=== PATIENT | male | born 1960 | race Caucasian/White ===

== ENCOUNTER 2017-11-16 21:10 | Inpatient (IN) | payer BC, SELFPAY ==
[2017-11-16 21:56] LABS: #Eosinphils 0.1 thou/uL (0.0-0.7); #Lymphocytes 1.6 thou/uL (1.20-3.40); #Monocytes 0.7 thou/uL (0.11-0.59); #Neutrophils 5.4 thou/uL (1.40-6.50); %Basophils 0.5 % (0.0-1.0); %Eosinophils 1.3 % (0.0-10.0); %Lymphocytes 20.1 % (21.0-51.0); %Monocytes 8.4 % (0.0-10.0); %Neutrophils 69.6 % (42.0-75.0); Mean Corpuscular HGB CONC 36.3 g/dL (32.0-36.0); Mean Corpuscular Hemoglobin 33.6 pg (27.0-31.0); Mean Corpuscular Volume 92.5 fl (80.0-94.0); Mean Platelet Volume 6.7 fL (7.4-10.4); Platelet Count 141 thou/uL (130-400); RBC Distribution Width 11.4 % (11.5-14.5); Red Blood Cell (RBC) Count 4.47 mill/uL (4.70-6.10); White Blood Cell (WBC) Count 7.8 thou/uL (4.8-10.8)
[2017-11-16] MEDS ORDERED: Dextrose 50% Abboject 50 ML SYRINGE SLOW IVP PRN (22:24)
[2017-11-16] MEDS ORDERED: HumaLOG 300 UNITS/3 ML VIAL SC PRN ×2 (22:24)
[2017-11-16] MEDS ORDERED: Dextrose 5% in Water 1,000 ML IV PRN (22:24)
[2017-11-16] MEDS ORDERED: Vancomycin HCl 1.25 GM in Sodium Chloride 0.9% 250 ML 250 ML IVPB SCH (22:30)
[2017-11-16] MEDS ORDERED: Piperacillin/Tazobactam 4.5 GM in Sodium Chloride 0.9% 100 ML IVPB SCH (22:30)
[2017-11-16 22:37] LABS: ALT (SGPT) 19 U/L (8-55); AST (SGOT) 14 U/L (5-34); Albumin 4.1 g/dL (3.5-5.0); Alkaline Phosphatase 78 U/L (40-150); Anion Gap 12 mmol/L (10-20); BUN (Urea Nitrogen) 17 mg/dL (8.4-25.7); Bilirubin, Total 0.5 mg/dL (0.2-1.2); Calc. Creatinine Clearance 0 mL/min (70-130); Calcium 9.3 mg/dL (7.8-10.44); Carbon Dioxide 25 mmol/L (22-29); Chloride 104 mmol/L (98-107); Estimated GFR-MDRD Greater than 90; Globulin 2.9 g/dL (2.4-3.5); Glucose 223 mg/dL (70-105); Potassium 3.5 mmol/L (3.5-5.1); Sodium 137 mmol/L (136-145)
[2017-11-16 23:17] LABS: Bilirubin Negative (Negative); Blood, Urine Negative (Negative); Clarity CLEAR (Clear); Glucose, Urine (Dipstick) 500 mg/dL (Negative); Leukocyte Negative (Negative); Nitrite Negative (Negative); Protein, Urine (Dipstick) 30 mg/dL (Neg-Trace); Specific Gravity, Urine 1.038 (1.002-1.036)
[2017-11-16 23:20] LABS: Bacteria/HPF None Seen HPF (None Seen); Hyaline Casts/LPF 0-3 HYALINE CAST LPF (0-3 Hyaline); RBC/HPF 0-3 HPF (0-3); Squamous Epithelial 0-3 HPF (0-3); WBC/HPF 0-3 HPF (0-3)
[2017-11-16 23:28] LABS: Crystals/HPF 2+ CA OXALATE HPF (Negative)
[2017-11-16] MEDS ORDERED: Bisacodyl 5 MG TAB PO PRN (23:41)
[2017-11-16] MEDS ORDERED: Senokot 8.6 MG TAB PO PRN (23:41)
[2017-11-16] MEDS ORDERED: Mag-Al 1200 mg/1200 mg/30 ML UDCUP PO PRN (23:41)
[2017-11-16] MEDS ORDERED: Calcium Carbonate 500 MG ChewTAB PO PRN (23:41)
[2017-11-16] MEDS ORDERED: Ondansetron HCl/PF 4 MG/2 ML Vial IVP PRN (23:41)
[2017-11-16] MEDS ORDERED: Acetaminophen 325 MG TAB PO PRN (23:41)
[2017-11-16] MEDS ORDERED: cloNIDine 0.1 MG TAB PO PRN (23:44)
[2017-11-16] MEDS ORDERED: Diabetic Tussin 200 MG/10 ML UDCUP PO PRN (23:44)
[2017-11-16] MEDS ORDERED: Loratadine 10 MG TAB PO PRN (23:44)
[2017-11-16] MEDS ORDERED: Lorazepam 1 MG TAB PO PRN (23:44)
[2017-11-16] MEDS ORDERED: Benzonatate 100 MG CAP PO PRN (23:44)
[2017-11-16] MEDS ORDERED: Nitroglycerin 0.4 MG TAB (25 Tab Bottle) SL PRN (23:44)
[2017-11-16] MEDS ORDERED: hydrALAZINE 20 MG/ML VIAL SLOW IVP PRN (23:44)
[2017-11-16] MEDS ORDERED: traMADol HCl 50 MG TAB PO PRN (23:44)
[2017-11-17] MEDS: Sodium Chloride 0.9% 1,000 ML IV SCH ×2 (00:30→16:21)
[2017-11-17 02:07] VITALS: BMI 27.5
--- NOTE | 2017-11-17 02:11 | HP ---
DATE OF ADMISSION: 11/16/2017 PRIMARY CARE PHYSICIAN: Dr. James Barry. CHIEF COMPLAINT: Repeated nose abscess and upper lip abscess with failed outpatient oral antibiotics . HISTORY OF PRESENT ILLNESS: Mr. Guevara is a very pleasant 56-year-old male with past [facility] history of diabetes, dyslipidemia, hypertension, who presented to the emergency room with above-m entioned complaint. History is mainly obtained by the patient himself and electronic medical records have been reviewed. Case has been discussed with admitting ER physician, Dr. Mancuso. According to Mr. Guevara, he has been fighting on and off skin infection for about 3 months now. It initially started in one of the fingers of the left hand and then under the nail bed of the middle fi nger. Then, he had one small abscess/boil in the right finger. He had the left nail bed infection I &D'd by his primary care physician. These healed, but later he developed similar skin infection arou nd the left areola, around the nipple. This also needed to be lanced open by PCP. Lately, he has be en fighting infection inside his nostrils. It started with infection and first left nostril and then right nostril became involved spontaneously. He has significant amount of pain. He has also notice d similar type of sores inside his mouth. Latest, his infection and a small boil and ulcer on his up per lip. During these various episodes of skin and soft tissue infection: he has been treated with v arious antibiotics. He has had Bactrim, clindamycin, and most recently doxycycline prescribed yester day. He is a diabetic and is very strict with his diet. His blood sugar ranged anywhere from 150 to 200 and he is compliant with his medications. He reports that he has been a diabetic for multiple y ears, but never had any skin infections like this. He also complains of significant amount of discom fort in the nasal area now, which has turned red. Upon presentation to the emergency room, he was hemodynamically stable. His physical examination for the emergency room physician revealed an abscess in the lower nasal cavity, the right side at the ba se of the nasal septum and the base was also hard, red, and inflamed. Unroofing was done by the ER angela escamilla, which showed a hole on the cartilage showing purulent drainage. There is concerns for cart ilage involvement along with a cellulitis and nasal abscesses at this time. He has been empirically started on IV antibiotics, namely vancomycin: clindamycin and Zosyn and is now being admitted for fur ther evaluation and care. PAST MEDICAL HISTORY: 1. Diabetes mellitus. 2. Hypertension. 3. Dyslipidemia. 4. Osteoarthritis. PAST SURGICAL HISTORY: 1. Incision and drainage of multiple skin abscesses as above. 2. L5-S1 spondylolisthesis with left greater than right lower extremity radiculopathy. 3. L5-S1 laminectomy and facetectomy bilaterally. 4. Nerve surgery on both arms. SOCIAL HISTORY: He chews tobacco. No history of drug or alcohol abuse. PSYCHIATRIC: No anxiety, no depression. FAMILY HISTORY: Diabetes run in his family, otherwise no history of premature coronary artery diseas e or stroke. ALLERGIES: MORPHINE, SULFONAMIDES. CURRENT HOME MEDICATIONS: Metformin 1000 mg p.o. b.i.d., simvastatin 80 mg daily, losartan/hydrochlo rothiazide 50/12.5 mg daily, atenolol 50 mg daily, omeprazole 20 mg daily. REVIEW OF SYSTEMS: The following complete review of systems was negative, except for those mentioned in the history and physical: Constitutional: Weight loss or gain, ability to conduct usual activit ies. Skin: Rash, itching. Eyes: Double vision, pain. ENT/Mouth: Nose bleeding, neck stiffness, pain, tenderness. Cardiovascular: Palpitations, dyspnea on exertion, orthopnea. Respiratory: Shor tness of breath, wheezing, cough, hemoptysis, fever, or night sweats. Gastrointestinal: Poor appeti te, abdominal pain, heartburn, nausea, vomiting, constipation, or diarrhea. Genitourinary: Urgency, frequency, dysuria, nocturia. Musculoskeletal: Pain, swelling. Neurologic/Psychiatric: Anxiety, depression. Allergy/Immunologic: Skin rash, bleeding tendency. LABORATORY DATA: His CBC shows normal WBCs of 7.8 with normal neutrophil percentage. He has somewha t macrocytosis without any evidence of anemia, blood sugar 223, otherwise serum chemistries unremarka ble. Urinalysis showed proteinuria and glucosuria. PHYSICAL EXAMINATION: VITAL SIGNS: Upon presentation to the ER, blood pressure 155/85, pulse of 88, respirations 18, satur ating 95% on room air, temperature 97.9. GENERAL: No acute distress, awake, alert, oriented x3. HEENT: Head is normocephalic, atraumatic. Pupils equal, reactive to light and accommodation. Extra ocular movements intact. His tip of the nose is significantly erythematous, swollen, and warm. A sm all-eroded shallow ulcer noticed on the philtrum of the upper lip. No oral ulcers noticed. No denta l abscess noticed. No caries. NECK: Supple without any lymphadenopathy, JVD, or bruit. CHEST: Clear to auscultation without any wheezing, rales, or rhonchi. Rate and rhythm is regular wi thout any murmur, rubs, or gallops. ABDOMEN: Soft, nontender, nondistended with positive bowel sounds. EXTREMITIES: Free of any cyanosis, clubbing, or edema. No ulcers noticed on the legs or feet. NEUROLOGIC: Nonfocal. PSYCHIATRIC: Normal affect. IMPRESSION AND PLAN: 1. Multiple nasal abscesses and skin wounds. At this time, it seems like the patient has self-infec caro himself in the nose at the time when he had his infection on his fingers. Possibility of bactere donnell can also not be ruled out. There is concerns for cartilaginous involvement of the nose at this t jez. We will continue him on broad-spectrum IV antibiotics and consult ID in the morning. The patie nt reports he was supposed to go to see ID as an outpatient anyways. We will also obtain an MRI of t he bones of the face and consult ENT for further recommendations regarding the concerns for cartilage involvement. Blood cultures and cultures from the wound have been obtained in the ER and we will fo llow the results. Otherwise, he is hemodynamically stable. He will be kept n.p.o. after midnight fo r ENT evaluation and started on gentle IV fluids. 2. Diabetes mellitus. We will start him on insulin-sliding scale with frequent Accu-Cheks for now. 3. History of hypertension. Resume home medications once the dosages are confirmed. 4. History of dyslipidemia. Resume atorvastatin at this time. 5. Add deep venous thrombosis and gastrointestinal prophylaxis. 6. Code status: FULL CODE discussed with the patient. DISPOSITION: The patient is being admitted at this time for nasal abscess, failing outpatient therap y, and rule out osteomyelitis. Further management will depend upon his clinical course and recommend ations from the ID and ENT teams. Estimated length of stay at this time is at least 2-3 midnights.
[2017-11-17 04:33] LABS: #Eosinphils 0.2 thou/uL (0.0-0.7); #Lymphocytes 2.1 thou/uL (1.20-3.40); #Monocytes 0.8 thou/uL (0.11-0.59); %Basophils 0.3 % (0.0-1.0); %Eosinophils 2.3 % (0.0-10.0); %Lymphocytes 29.9 % (21.0-51.0); %Monocytes 11.5 % (0.0-10.0); Hemoglobin 13.6 g/dL (14.0-18.0); Mean Corpuscular HGB CONC 34.9 g/dL (32.0-36.0); Mean Corpuscular Hemoglobin 32.4 pg (27.0-31.0); Mean Platelet Volume 6.6 fL (7.4-10.4); Platelet Count 132 thou/uL (130-400); RBC Distribution Width 11.3 % (11.5-14.5); White Blood Cell (WBC) Count 7.2 thou/uL (4.8-10.8)
[2017-11-17 04:46] LABS: Anion Gap 10 mmol/L (10-20); BUN (Urea Nitrogen) 15 mg/dL (8.4-25.7); Calc. Creatinine Clearance 117 mL/min (70-130); Calcium 8.7 mg/dL (7.8-10.44); Carbon Dioxide 29 mmol/L (22-29); Chloride 104 mmol/L (98-107); Estimated GFR-MDRD Greater than 90; Glucose 162 mg/dL (70-105); Potassium 3.5 mmol/L (3.5-5.1); Sodium 139 mmol/L (136-145)
[2017-11-17] MEDS ORDERED: Lorazepam 2 MG/ML VIAL SLOW IVP SCH (08:45)
[2017-11-17] MEDS ORDERED: Vancomycin HCl 1 GM in Premix Bag 1 BAG IVPB SCH (09:00)
[2017-11-17] MEDS ORDERED: VANCOMYCIN IVPB PRN (09:53)
[2017-11-17] MEDS ORDERED: Fentanyl 250 MCG/5 ML VIAL ONE (10:54)
--- NOTE | 2017-11-17 11:01 | CT ---
FACIAL BONES CT WITH CONTRAST: Date: 11/17/17 HISTORY: Nasal and upper lip abscess. Evaluate for destruction of cartilage and bone. Cellulitis. COMPARISON: None. TECHNIQUE: Postcontrast face CT is performed in the axial plane. Coronal reformatted images are submitted for in terpretation. FINDINGS: Visualized brain parenchyma is unremarkable. Bilateral ocular lenses are appropriately located. Both globes are intact. Retrobulbar fat is preserved. Symmetric attenuation of the optic nerves and ocular rectus muscles. Adequate aeration of the sinuses and mastoid air cells. Visualized aerodigestive tract is patent. Midline fatty raphe of the tongue is preserved. Epiglottis has a normal caliber. Pre-epiglottic fat is preserved. Visualized upper cervical spine is unremarkable. There is soft tissue swelling and edema involving the upper and lower lip soft tissues. Along the mid line of the upper lip soft tissues, there is hypoattenuation with minimal peripheral enhancement. Thi s abnormal area is just inferior to the nose and measures 1.1 cm anteroposterior x 0.4 cm mediolatera l x 0.5 cm craniocaudal. Symmetric attenuation of the visualized parotid and submandibular glands. IMPRESSION: 1. Cellulitis involving the soft tissues along the upper lip. In the midline aspect of the upper lip , just inferior to the nose, is a small abscess as defined above. 2. Preservation of the nasal cartilage. POS: [facility]
[2017-11-17] MEDS: Enoxaparin Sodium 40 MG/0.4 ML SYRINGE SC SCH (11:04)
[2017-11-17] MEDS: Famotidine 20 MG TAB PO SCH ×2 (11:04→21:31)
[2017-11-17] MEDS ORDERED: Midazolam HCl 2 mg/2 ml Vial ONE (11:38)
[2017-11-17] MEDS ORDERED: Lidocaine 1% w/Epinephrine 1:200K 30 ML VIAL ONE (11:56)
[2017-11-17] MEDS ORDERED: Oxymetazoline HCl 0.05% ( 15 ML ) ONE (11:56)
[2017-11-17] MEDS: Piperacillin/Tazobactam 3.375 GM in Sodium Chloride 0.9% 100 ML IVPB SCH ×2 (12:11→18:16)
[2017-11-17] MEDS ORDERED: ISOVUE-370 76%-LOCM 1 ML ONE (13:40)
--- NOTE | 2017-11-17 13:43 | PDOC.PN ---
- Subjective Encounter Start Date: 11/17/17 Encounter Start Time: 11:00 Subjective: no trouble swallowing or breathing - Objective MAR Reviewed: Yes Vital Signs & Weight: Vital Signs (12 hours) Temp Pulse Resp BP Pulse Ox 11/17/17 11:08 94 L 11/17/17 10:25 12 11/17/17 08:45 97.7 F 62 10 L 117/78 94 L 11/17/17 03:59 97.6 F 66 20 119/74 96 Weight Weight 186 lb 4.65 oz Result Diagrams: 11/17/17 04:13 11/17/17 04:13 Additional Labs: Accuchecks 11/17/17 05:37 POC Glucose 118 H Phys Exam - Physical Examination HEENT: PERRLA, moist MMs upper lip philtrum area has a abscess Neck: no JVD, supple Respiratory: no wheezing, no rales Cardiovascular: RRR, no significant murmur Gastrointestinal: soft, non-tender, positive bowel sounds Musculoskeletal: no edema, pulses present Neurological: non-focal, moves all 4 limbs Psychiatric: normal affect, A&O x 3 Dx/Plan (1) Facial cellulitis Code(s): L03.211 - CELLULITIS OF FACE Status: Acute Comment: has abscess of upper lip (2) DM type 2 (diabetes mellitus, type 2) Status: Chronic Qualifiers: Diabetes mellitus complication status: with unspecified complications Diabetes mellitus buttermaker continuous churn insulin use: without fpc use Qualified Code( s): E11.8 - Type 2 diabetes mellitus with unspecified complications (3) HTN (hypertension) Code(s): I10 - ESSENTIAL (PRIMARY) HYPERTENSION Status: Chronic Qualifiers: Hypertension type: essential hypertension Qualified Code(s): I10 - Essential (primary) hypertension (4) Dyslipidemia Code(s): E78.5 - HYPERLIPIDEMIA, UNSPECIFIED Status: Chronic - Plan on vanc and zosyn -: for I&D today by -: hemostable -: d/w and pt, CT face results reviewed -: continue home meds for dm, htn, dyslip * . Review of Systems - Medications/Allergies Allergies/Adverse Reactions: Allergies Allergy/AdvReac Type Severity Reaction Status Date / Time No Known Allergies Allergy Verified 06/13/14 22:22 Medications: Current Medications Acetaminophen (Tylenol) 650 mg PO Q4H PRN PRN Reason: Headache/Fever or Pain Hydrocodone Bitart/Acetaminophen ([place] 5/325) 1 tab PO Q4H PRN PRN Reason: Moderate Pain (4-6) Al Hydroxide/Mg Hydroxide (Maalox) 30 ml PO Q6H PRN PRN Reason: Heartburn or Indigestion Benzonatate (Tessalon) 100 mg PO Q4H PRN PRN Reason: Cough Bisacodyl (Dulcolax) 10 mg PO DAILYPRN PRN PRN Reason: Constipation Calcium Carbonate (Tums) 1,000 mg PO Q4H PRN PRN Reason: Heartburn or Indigestion Clonidine (Catapres) 0.1 mg PO Q4H PRN PRN Reason: Systolic BP > 160 Dextrose/Water (Dextrose 50%) 25 gm SLOW IVP PRN PRN PRN Reason: Hypoglycemia Enoxaparin Sodium (Lovenox) 40 mg SC 0900 [facility] Last Admin: 11/17/17 11:04 Dose: Not Given Famotidine (Pepcid) 20 mg PO BID [facility] Last Admin: 11/17/17 11:04 Dose: Not Given Glucagon (Glucagon) 1 mg IM PRN PRN PRN Reason: Hypoglycemia Guaifenesin (Robitussin Sf) 200 mg PO Q4H PRN PRN Reason: Cough Hydralazine HCl (Apresoline) 10 mg SLOW IVP Q4H PRN PRN Reason: Systolic BP > 170 Dextrose/Water (D5w) 1,000 mls @ 0 mls/hr IV .Q0M PRN; As Directed PRN Reason: Hypoglycemia Sodium Chloride (Normal Saline 0.9%) 1,000 mls @ 75 mls/hr IV .[id number] [facility] Last Admin: 11/17/17 00:30 Dose: 1,000 mls Piperacillin Sod/Tazobactam (Sod 3.375 gm/ Sodium Chloride) 100 mls @ 200 mls/ hr IVPB Q6HR [facility] Last Admin: 11/17/17 12:11 Dose: Not Given Vancomycin HCl 1.25 gm/ Sodium (Chloride) 250 mls @ 166.667 mls/hr IVPB 0900, 2100 [facility] Insulin Human Lispro (Humalog) 0 units SC .MODERATE SLIDING SC PRN PRN Reason: Moderate Correctional Scale Insulin Human Lispro (Humalog) 0 units SC .BEDTIME SLIDING SC PRN PRN Reason: Bedtime Correctional Scale Loratadine (Claritin) 10 mg PO DAILYPRN PRN PRN Reason: Sinus Symptoms Lorazepam (Ativan) 1 mg PO Q4H PRN PRN Reason: Anxiety/Agitation Miscellaneous Medication (Pharmacy To Dose) 1 each IVPB PRN PRN PRN Reason: Pharmacy to dose Nitroglycerin (Nitrostat) 0.4 mg SL Q5MIN PRN PRN Reason: Chest Pain Ondansetron HCl (Zofran) 4 mg IVP Q6H PRN PRN Reason: Nausea/Vomiting Pneumococcal Polyvalent Vaccine (Pneumovax 23) 0.5 ml IM .ONCE ONE Stop: 11/18/17 09:01 Senna (Senokot) 2 tab PO HSPRN PRN PRN Reason: Constipation Sodium Chloride (Flush - Normal Saline) 10 ml IVF Q12HR [facility] Last Admin: 11/17/17 11:04 Dose: Not Given Sodium Chloride (Flush - Normal Saline) 10 ml IVF PRN PRN PRN Reason: Saline Flush Tramadol HCl (Ultram) 50 mg PO Q4H PRN PRN Reason: Moderate Pain (4-6)
[2017-11-17] MEDS ORDERED: Lidocaine 1% PF 5 ML VIAL ONE (14:32)
[2017-11-17] MEDS ORDERED: Propofol 200 MG/20 ML VIAL ONE (14:32)
[2017-11-17] MEDS ORDERED: Ketorolac Tromethamine 30 MG/ML VIAL ONE (14:32)
[2017-11-17] MEDS ORDERED: Ondansetron HCl/PF 4 MG/2 ML Vial ONE (14:32)
[2017-11-17] MEDS ORDERED: Dexamethasone 20 MG/5 ML VIAL ONE (14:32)
[2017-11-17] MEDS: HYDROcodone/Acetaminophen 5/325 mg Tablet PO PRN ×2 (15:05→21:31)
--- NOTE | 2017-11-17 19:40 | OP ---
PREOPERATIVE DIAGNOSIS: Nasal labial abscess. POSTOPERATIVE DIAGNOSIS: Nasal labial abscess. PROCEDURES PERFORMED: 1. Diagnostic nasal endoscopy. 2. Incision and drainage of a nasal labial abscess. PROCEDURE IN DETAIL: After consent was obtained, the patient was positioned for surgery after transf erred to the operating room in supine position. LMA anesthesia was obtained. The patient was positi oned, prepped and draped for surgery. The area underneath the lip was infiltrated with 1% lidocaine 1:100,000 epinephrine. We then examined the patient carefully with the diagnostic nasal endoscopy. There was no obvious intranasal abscess and this all seemed to be located primarily at the level of t he upper lip. Intraorally, we were able to identify the abscess at the gingival labial sulcus. Thre e small incisions were made and purulence was evacuated. We then placed a rubber band drain within t he abscess cavity and extended out to the point of initial infection at the nasal valve. This was beltran ture secured and cultures were obtained. The patient was awakened and taken to recovery in stable co ndition prior to discharge home.
[2017-11-17] MEDS: Vancomycin HCl 1.25 GM in Sodium Chloride 0.9% 250 ML 250 ML IVPB SCH (21:30)
--- NOTE | 2017-11-17 22:38 | CON ---
DATE OF CONSULTATION: 11/17/2017 REASON FOR CONSULTATION: Nasal septal abscess. HISTORY OF PRESENT ILLNESS: A 56-year-old with history of type 2 diabetes, who has had history of recurrent skin abscesses mostly in appendicular skin surfaces and then now presents with a nasal septal abscess, which was treated in the outpatient setting by his primary physician with limited I&D and clindamycin. Dr. Dean did a surgical debridement in the hospital. I have not had the opportunity of reviewing his operative note. The patient is feeling better since that procedure. No headaches, visual symptoms. Moderate pain in the nasal septal area and nostrils. No chest pain. No dyspnea. No cough or sputum production. No abdominal pain. Voiding without difficulty. No diarrhea or genitourinary symptoms. No joint symptoms or neurological symptoms. PAST MEDICAL HISTORY: Type 2 diabetes, hypertension, dyslipidemia, osteoarthritis. PAST SURGICAL HISTORY: I&D, prior skin abscesses elsewhere, lumbar surgery without any instrumentation. SOCIAL HISTORY: Works in the [employer]. . Never a smoker. Chews tobacco. Lives in the area. FAMILY HISTORY: Diabetes. ALLERGIES: MORPHINE and SULFA DRUGS. MEDICATIONS: At this time, receiving Tylenol, [place], Maalox, Tessalon, Dulcolax , Tums, Catapres, IV fluids, Lovenox, Pepcid, glucagon, Robitussin, insulin, and Zosyn as well as vancomycin. PHYSICAL EXAMINATION: VITAL SIGNS: Essentially normal. Blood pressure 117/78, pulse 62, respirations 12 with O2 sat 94%. GENERAL: Appears in no distress. SKIN: The patient has packing in his nostril area. HEENT: Ocular movements conjugate. NECK: No jugular vein distention. No thyromegaly. LUNGS: Clear to auscultation and percussion. HEART: Normal. ABDOMEN: Soft. Not distended or tender. No ascites. No bladder distention. No organomegaly. EXTREMITIES: No joint inflammatory activity. Pulses 1+ in dorsalis pedis. NEUROLOGIC: Plantar responses are flexor. Moves extremities equally. Cognitive function appears to be intact. LABORATORY DATA: White cell count 7.8 and 7.2, hemoglobin 13.6, MCV 93, platelets 132 with normal differential. Chemistry with essentially normal findings except for hyperglycemia. Urinalysis with glycosuria and some protein , but otherwise normal. Microbiology with preliminary findings from the nasal abscess with a rare gram-positive cocci in pairs. ASSESSMENT AND PLAN: Type 2 diabetes with recurrent skin abscesses, now with a nasal abscess, status post drainage. Apparently, there was some cartilage involvement. The patient had facial bone CT, which shows cellulitis and small abscess with preservation of the nasal cartilage. The most likely scenario is Staphylococcal abscesses due to colonization by a more virulent strain. MRSA is a possibility. Continue vancomycin and transition to the definitive regimen once we have the final identification susceptibilities. We will review the records from the surgical debridement and then hopefully discharge on oral antimicrobial therapy. If there is evidence of more aggressive involvement of cartilage, then we will have to treat with intravenous regimen for a few weeks. After completion of acute phase of treatment should prescribe oral decolonization regimen with Rifampin/Doxycycline. MTDD
[2017-11-18] MEDS: Piperacillin/Tazobactam 3.375 GM in Sodium Chloride 0.9% 100 ML IVPB SCH ×5 (00:17→23:28)
[2017-11-18] MEDS: Sodium Chloride 0.9% 1,000 ML IV SCH ×2 (03:29→21:00)
[2017-11-18 08:24] LABS: Vancomycin, Trough 8.8 ug/mL
[2017-11-18] MEDS: Famotidine 20 MG TAB PO SCH ×2 (08:27→21:02)
[2017-11-18] MEDS: Enoxaparin Sodium 40 MG/0.4 ML SYRINGE SC SCH (08:27)
[2017-11-18] MEDS: Vancomycin HCl 1.25 GM in Sodium Chloride 0.9% 250 ML 250 ML IVPB SCH (08:27)
--- NOTE | 2017-11-18 11:56 | PDOC.PN ---
- Subjective Encounter Start Date: 11/18/17 Encounter Start Time: 10:00 Subjective: feels better, slept well -: his face is swollen a bit -: no trouble breathing or eating - Objective MAR Reviewed: Yes Vital Signs & Weight: Vital Signs (12 hours) Temp Pulse Resp BP Pulse Ox 11/18/17 11:25 97.7 F 80 16 124/78 96 11/18/17 08:00 98.3 F 65 16 95 11/18/17 07:59 98.3 F 65 16 153/80 H 95 11/18/17 00:00 72 19 133/81 96 Weight Weight 186 lb 4.65 oz I&O: 11/17/17 11/18/17 11/19/17 06:59 06:59 07:59 Intake Total 2285 2120 Balance 2285 2120 Result Diagrams: 11/17/17 04:13 11/17/17 04:13 Additional Labs: Accuchecks 11/18/17 11/17/17 05:41 20:51 POC Glucose 110 213 H Phys Exam - Physical Examination HEENT: PERRLA, moist MMs Neck: no JVD, supple Respiratory: no wheezing, no rales Cardiovascular: RRR, no significant murmur Gastrointestinal: soft, non-tender, positive bowel sounds Musculoskeletal: no edema, pulses present Neurological: non-focal, moves all 4 limbs Psychiatric: normal affect, A&O x 3 Dx/Plan (1) Facial cellulitis Code(s): L03.211 - CELLULITIS OF FACE Status: Acute Comment: abscess of upper lip, s/p I&D (2) DM type 2 (diabetes mellitus, type 2) Status: Chronic Qualifiers: Diabetes mellitus complication status: with unspecified complications Diabetes mellitus moth exterminator insulin use: without fci use Qualified Code( s): E11.8 - Type 2 diabetes mellitus with unspecified complications (3) HTN (hypertension) Code(s): I10 - ESSENTIAL (PRIMARY) HYPERTENSION Status: Chronic Qualifiers: Hypertension type: essential hypertension Qualified Code(s): I10 - Essential (primary) hypertension (4) Dyslipidemia Code(s): E78.5 - HYPERLIPIDEMIA, UNSPECIFIED Status: Chronic - Plan is on vanc and zosyn -: await final cultures -: has some more swelling of his face this am -: likely dc plan in am when full cultures are available -: to continue home meds for htn, dm and dyslip * . Review of Systems - Medications/Allergies Allergies/Adverse Reactions: Allergies Allergy/AdvReac Type Severity Reaction Status Date / Time No Known Allergies Allergy Verified 06/13/14 22:22 Medications: Current Medications Acetaminophen (Tylenol) 650 mg PO Q4H PRN PRN Reason: Headache/Fever or Pain Hydrocodone Bitart/Acetaminophen ([place] 5/325) 1 tab PO Q4H PRN PRN Reason: Moderate Pain (4-6) Last Admin: 11/17/17 21:31 Dose: 1 tab Al Hydroxide/Mg Hydroxide (Maalox) 30 ml PO Q6H PRN PRN Reason: Heartburn or Indigestion Benzonatate (Tessalon) 100 mg PO Q4H PRN PRN Reason: Cough Bisacodyl (Dulcolax) 10 mg PO DAILYPRN PRN PRN Reason: Constipation Calcium Carbonate (Tums) 1,000 mg PO Q4H PRN PRN Reason: Heartburn or Indigestion Clonidine (Catapres) 0.1 mg PO Q4H PRN PRN Reason: Systolic BP > 160 Last Admin: 11/17/17 15:07 Dose: 0.1 mg Dextrose/Water (Dextrose 50%) 25 gm SLOW IVP PRN PRN PRN Reason: Hypoglycemia Enoxaparin Sodium (Lovenox) 40 mg SC 0900 [facility] Last Admin: 11/18/17 08:27 Dose: 40 mg Famotidine (Pepcid) 20 mg PO BID [facility] Last Admin: 11/18/17 08:27 Dose: 20 mg Glucagon (Glucagon) 1 mg IM PRN PRN PRN Reason: Hypoglycemia Guaifenesin (Robitussin Sf) 200 mg PO Q4H PRN PRN Reason: Cough Hydralazine HCl (Apresoline) 10 mg SLOW IVP Q4H PRN PRN Reason: Systolic BP > 170 Dextrose/Water (D5w) 1,000 mls @ 0 mls/hr IV .Q0M PRN; As Directed PRN Reason: Hypoglycemia Sodium Chloride (Normal Saline 0.9%) 1,000 mls @ 75 mls/hr IV .[id number] [facility] Last Admin: 11/18/17 03:29 Dose: Not Given Piperacillin Sod/Tazobactam (Sod 3.375 gm/ Sodium Chloride) 100 mls @ 200 mls/ hr IVPB Q6HR [facility] Last Admin: 11/18/17 06:26 Dose: 100 mls Vancomycin HCl 1.75 gm/ Sodium (Chloride) 500 mls @ 250 mls/hr IVPB 0900,2100 [facility] Insulin Human Lispro (Humalog) 0 units SC .MODERATE SLIDING SC PRN PRN Reason: Moderate Correctional Scale Insulin Human Lispro (Humalog) 0 units SC .BEDTIME SLIDING SC PRN PRN Reason: Bedtime Correctional Scale Loratadine (Claritin) 10 mg PO DAILYPRN PRN PRN Reason: Sinus Symptoms Lorazepam (Ativan) 1 mg PO Q4H PRN PRN Reason: Anxiety/Agitation Miscellaneous Medication (Pharmacy To Dose) 1 each IVPB PRN PRN PRN Reason: Pharmacy to dose Nitroglycerin (Nitrostat) 0.4 mg SL Q5MIN PRN PRN Reason: Chest Pain Ondansetron HCl (Zofran) 4 mg IVP Q6H PRN PRN Reason: Nausea/Vomiting Senna (Senokot) 2 tab PO HSPRN PRN PRN Reason: Constipation Sodium Chloride (Flush - Normal Saline) 10 ml IVF Q12HR [facility] Last Admin: 11/17/17 22:44 Dose: Not Given Sodium Chloride (Flush - Normal Saline) 10 ml IVF PRN PRN PRN Reason: Saline Flush Tramadol HCl (Ultram) 50 mg PO Q4H PRN PRN Reason: Moderate Pain (4-6)
[2017-11-18] MEDS: metFORMIN 500 MG TAB PO SCH (17:19)
[2017-11-18] MEDS ORDERED: Simvastatin 40 MG TAB PO SCH (21:00)
[2017-11-18] MEDS: Vancomycin HCl 1.75 GM in Sodium Chloride 0.9% 500 ML IVPB SCH (21:03)
[2017-11-19] MEDS: Sodium Chloride 0.9% 1,000 ML IV SCH (04:00)
[2017-11-19] MEDS: Piperacillin/Tazobactam 3.375 GM in Sodium Chloride 0.9% 100 ML IVPB SCH ×2 (05:53→12:11)
[2017-11-19] MEDS: metFORMIN 500 MG TAB PO SCH (08:22)
[2017-11-19] MEDS: Famotidine 20 MG TAB PO SCH (08:22)
[2017-11-19] MEDS: Enoxaparin Sodium 40 MG/0.4 ML SYRINGE SC SCH (08:23)
[2017-11-19] MEDS: Vancomycin HCl 1.75 GM in Sodium Chloride 0.9% 500 ML IVPB SCH (08:24)
[2017-11-19 08:25] VITALS: BP 141/73
[2017-11-19] MEDS ORDERED: Atenolol 50 MG TAB PO SCH (09:00)
[2017-11-19 09:48] VITALS: TEMP 98
--- NOTE | 2017-11-19 12:35 | PDOC.PN ---
- Subjective Encounter Start Date: 11/19/17 Encounter Start Time: 08:30 Subjective: feels better, no trouble eating or swallowing - Objective MAR Reviewed: Yes Vital Signs & Weight: Vital Signs (12 hours) Temp Pulse Resp BP BP Pulse Ox 11/19/17 08:22 63 141/73 H 11/19/17 08:00 98.0 F 63 18 95 11/19/17 05:32 93 L 11/19/17 04:00 97.6 F 76 16 132/81 95 11/18/17 23:51 97.5 F L 58 L 16 147/83 H 96 Weight Weight 186 lb 4.65 oz I&O: 11/18/17 11/19/17 11/20/17 05:59 06:59 06:59 Intake Total Balance Result Diagrams: 11/17/17 04:13 11/17/17 04:13 Additional Labs: Accuchecks 11/19/17 11/19/17 11/18/17 11:23 05:48 20:37 POC Glucose 206 H 112 H 168 H 11/18/17 11/18/17 15:50 11:28 POC Glucose 205 H 280 H Phys Exam - Physical Examination HEENT: PERRLA, moist MMs Neck: no JVD, supple Respiratory: no wheezing, no rales Cardiovascular: RRR, no significant murmur Gastrointestinal: soft, non-tender, positive bowel sounds Musculoskeletal: no edema, pulses present Neurological: non-focal, moves all 4 limbs Psychiatric: A&O x 3 Dx/Plan (1) Facial cellulitis Code(s): L03.211 - CELLULITIS OF FACE Status: Acute Comment: abscess of upper lip, s/p I&D (2) DM type 2 (diabetes mellitus, type 2) Status: Chronic Qualifiers: Diabetes mellitus complication status: with unspecified complications Diabetes mellitus correction insulin use: without correction use Qualified Code( s): E11.8 - Type 2 diabetes mellitus with unspecified complications (3) HTN (hypertension) Code(s): I10 - ESSENTIAL (PRIMARY) HYPERTENSION Status: Chronic Qualifiers: Hypertension type: essential hypertension Qualified Code(s): I10 - Essential (primary) hypertension (4) Dyslipidemia Code(s): E78.5 - HYPERLIPIDEMIA, UNSPECIFIED Status: Chronic - Plan cultures are growing mrsa -: with goodrx the [facility] for zyvox might be afordable, d/w -: to f/u with as adv and in 2 weeks -: hemostable * . Review of Systems - Medications/Allergies Allergies/Adverse Reactions: Allergies Allergy/AdvReac Type Severity Reaction Status Date / Time No Known Allergies Allergy Verified 06/13/14 22:22 Medications: Current Medications Acetaminophen (Tylenol) 650 mg PO Q4H PRN PRN Reason: Headache/Fever or Pain Hydrocodone Bitart/Acetaminophen ([place] 5/325) 1 tab PO Q4H PRN PRN Reason: Moderate Pain (4-6) Last Admin: 11/17/17 21:31 Dose: 1 tab Al Hydroxide/Mg Hydroxide (Maalox) 30 ml PO Q6H PRN PRN Reason: Heartburn or Indigestion Atenolol (Tenormin) 50 mg PO DAILY COUNT INCLUDES THE [facility] Last Admin: 11/19/17 08:22 Dose: 50 mg Benzonatate (Tessalon) 100 mg PO Q4H PRN PRN Reason: Cough Bisacodyl (Dulcolax) 10 mg PO DAILYPRN PRN PRN Reason: Constipation Calcium Carbonate (Tums) 1,000 mg PO Q4H PRN PRN Reason: Heartburn or Indigestion Clonidine (Catapres) 0.1 mg PO Q4H PRN PRN Reason: Systolic BP > 160 Last Admin: 11/17/17 15:07 Dose: 0.1 mg Dextrose/Water (Dextrose 50%) 25 gm SLOW IVP PRN PRN PRN Reason: Hypoglycemia Enoxaparin Sodium (Lovenox) 40 mg SC 0900 COUNT INCLUDES THE [facility] Last Admin: 11/19/17 08:23 Dose: 40 mg Famotidine (Pepcid) 20 mg PO BID COUNT INCLUDES THE [facility] Last Admin: 11/19/17 08:22 Dose: 20 mg Glucagon (Glucagon) 1 mg IM PRN PRN PRN Reason: Hypoglycemia Guaifenesin (Robitussin Sf) 200 mg PO Q4H PRN PRN Reason: Cough HCTZ/Losartan Potassium (Hyzaar 50/12.5) 1 tab PO DAILY COUNT INCLUDES THE [facility] Last Admin: 11/19/17 08:22 Dose: 1 tab Hydralazine HCl (Apresoline) 10 mg SLOW IVP Q4H PRN PRN Reason: Systolic BP > 170 Dextrose/Water (D5w) 1,000 mls @ 0 mls/hr IV .Q0M PRN; As Directed PRN Reason: Hypoglycemia Piperacillin Sod/Tazobactam (Sod 3.375 gm/ Sodium Chloride) 100 mls @ 200 mls/ hr IVPB Q6HR COUNT INCLUDES THE [facility] Last Admin: 11/19/17 12:11 Dose: 100 mls Vancomycin HCl 1.75 gm/ Sodium (Chloride) 500 mls @ 250 mls/hr IVPB 0900,2100 COUNT INCLUDES THE [facility] Last Admin: 11/19/17 08:24 Dose: 500 mls Insulin Human Lispro (Humalog) 0 units SC .MODERATE SLIDING SC PRN PRN Reason: Moderate Correctional Scale Last Admin: 11/18/17 13:08 Dose: 6 unit Insulin Human Lispro (Humalog) 0 units SC .BEDTIME SLIDING SC PRN PRN Reason: Bedtime Correctional Scale Loratadine (Claritin) 10 mg PO DAILYPRN PRN PRN Reason: Sinus Symptoms Lorazepam (Ativan) 1 mg PO Q4H PRN PRN Reason: Anxiety/Agitation Metformin HCl (Glucophage) 1,000 mg PO BID-[facility] Last Admin: 11/19/17 08:22 Dose: 1,000 mg Miscellaneous Medication (Pharmacy To Dose) 1 each IVPB PRN PRN PRN Reason: Pharmacy to dose Nitroglycerin (Nitrostat) 0.4 mg SL Q5MIN PRN PRN Reason: Chest Pain Ondansetron HCl (Zofran) 4 mg IVP Q6H PRN PRN Reason: Nausea/Vomiting Senna (Senokot) 2 tab PO HSPRN PRN PRN Reason: Constipation Simvastatin (Zocor) 80 mg PO HS COUNT INCLUDES THE [facility] Last Admin: 11/18/17 21:02 Dose: 80 mg Sodium Chloride (Flush - Normal Saline) 10 ml IVF Q12HR COUNT INCLUDES THE [facility] Last Admin: 11/18/17 21:04 Dose: 10 ml Sodium Chloride (Flush - Normal Saline) 10 ml IVF PRN PRN PRN Reason: Saline Flush Tramadol HCl (Ultram) 50 mg PO Q4H PRN PRN Reason: Moderate Pain (4-6)
--- NOTE | 2017-11-19 15:49 | PRG ---
DATE OF SERVICE: 11/19/2017 SUBJECTIVE: Feeling better, minimal pain at the labial area, nasal septum. No diarrhea. OBJECTIVE: VITAL SIGNS: Normal. HEENT: The area of inflammatory change in the facial region is markedly improved in terms of swellin g. LUNGS: Clear. HEART: S1 and S2, regular rate. ABDOMEN: Soft and not distended. LABORATORY: White cell count 7.2, hemoglobin 13.6. Chemistry not repeated. ASSESSMENT AND DISCUSSION: We were able to review the operative report from Dr. Caldera, and this was basically a labial abscess. At this point, discharge planning on oral antimicrobial therapy. [facility] not able to afford Zyvox. We will switch him to rifampin and minocycline for 2 weeks. Follow up in the clinic in 3 weeks and then we will prescribe decolonization regimen.
--- NOTE | 2017-11-19 17:54 | DIS ---
DATE OF ADMISSION: 11/16/2017 DATE OF DISCHARGE: 11/19/2017 DISCHARGE DISPOSITION: To home. PRIMARY DISCHARGE DIAGNOSIS: Upper lip abscess status post incision and drainage. SECONDARY DISCHARGE DIAGNOSES: Diabetes mellitus type 2, hypertension, dyslipidemia. PROCEDURES DONE DURING HOSPITALIZATION: Patient has had facial bones CT done, which showed cellulitis involving soft tissues along the upper lip in the midline. In the upper lip just inferior to the nose, a small abscess measuring 1.1 x 0.4 x 0.5 cm. The patient has had incision and drainage of the nasolabial abscess along with diagnostic nasal endoscopy done by Dr. Caldera on 11/17/2017. 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 Discharge H and H 13 and 39. White count of 7 with platelet count of 132. BUN and creatinine is 15 and 0.8. DISCHARGE MEDICATIONS: Rifampin 300 mg p.o. twice daily for 2 weeks, minocycline 100 mg p.o. twice daily for 2 weeks, omeprazole 20 mg p.o. daily, Zocor 80 mg p.o. at bedtime, metformin 1000 mg p.o. twice daily, losartan with hydrochlorothiazide 50/12.5 mg p.o. daily, Motrin p.r.n. for pain, and atenolol 50 mg p.o. daily. ALLERGIES: No known drug allergies. INPATIENT CONSULTS: Dr. Caldera for ENT, Dr. Chan for Infectious Disease. BRIEF COURSE DURING HOSPITALIZATION: Patient initially got admitted on the 05/2018 with recurrent abscesses around the nose and upper lip area with failed outpatient antibiotics. He has had a CT of the facial bones done and clinical exam were consistent with upper lip abscess. ENT consultation with Dr. Caldera was requested. The patient has had incision and drainage done for the same with a nasal endoscopy done as well. Cultures have grown MRSA. He was on IV antibiotics all through his stay here and has been transitioned to oral rifampin and doxycycline for 2 weeks. He needs to follow up with Dr. Chan in [address] Caldera in the morning for dressing changes. He is otherwise hemodynamically stable and will be shortly discharged home. Please see a [id number] documentation for the day of discharge on [facility]. [facility]
== END 2017-11-19 16:42 | disposition home or self-care (01) | DRG 159 ==
LOC: ERS 21:10 → SURG B 23:55
PROVIDERS: ADMIT Internal Medicine; ATTEND Internal Medicine
PROC: 09JK8ZZ Inspection of Nasal Mucosa and Soft Tissue, Via Natural or Artificial Opening Endoscopic (ICD-10-PCS; principal; 2017-11-17)
PROC: 0C9 Mouth and Throat, Drainage (ICD-10-PCS; 2017-11-17)
DX: K13.0 Diseases of lips (principal); B95.62 Methicillin resistant Staphylococcus aureus infection as the cause of diseases classified elsewhere; E11.9 Type 2 diabetes mellitus without complications; E78.5 Hyperlipidemia, unspecified; F17.220 Nicotine dependence, chewing tobacco, uncomplicated; I10 Essential (primary) hypertension; M19.90 Unspecified osteoarthritis, unspecified site; Z88.5 Allergy status to narcotic agent; Z88.2 Allergy status to sulfonamides; Z79.84 Long term (current) use of oral hypoglycemic drugs
CPT/HCPCS: 36415; 36416; 70487; 70543; 80048; 80053; 80202; 81003; 81015; 85025; 87070; 87077; 87186; 87205; 96365; 99406; A4216; J1100; J1650; J1885; J2001; J2250; J2405; J2543; J2704; J3010; J3370; J7050